=== PATIENT | female | born 1995 | race African-American/Black ===

== ENCOUNTER 2022-02-04 19:59 | Inpatient (IN) | payer OTHER ==
[2022-02-04 20:30] VITALS: BMI 29.2
[2022-02-04] MEDS ORDERED: morphine SULFATE 4 MG/ML VIAL IVPUSH ONE (21:08)
[2022-02-04] MEDS ORDERED: ONDANSETRON 4 MG/2 ML VIAL IVPUSH ONE (21:08)
[2022-02-04] MEDS ORDERED: FAMOTIDINE 20 MG/50 ML IVPB 20 MG/50 ML MG IVPB ONE ×2 (21:08→21:48)
[2022-02-04] MEDS ORDERED: LACTATED RINGERS SOLUTION 1000 ML INFUS.BAG IV ONE (21:08)
[2022-02-04] MEDS ORDERED: ACETAMINOPHEN 1000 MG/100 ML BAG IVPB ONE (21:09)
[2022-02-04] MEDS ORDERED: ONDANSETRON 4 MG/2 ML VIAL ONE (21:20)
[2022-02-04] MEDS ORDERED: morphine SULFATE 4 MG/ML VIAL ONE (21:20)
[2022-02-04 21:33] LABS: BASO % 0.3 % (0-2.0); HEMATOCRIT 30.1 % (32.4-45.2); HEMOGLOBIN 9.8 GM/dL (10.7-15.3); LYMPH % 8.6 % (8-40); MCH 24.8 pg (25.7-33.7); MCHC 32.6 g/dl (32.0-36.0); MEAN CELL VOLUME 76.2 fl (80-96); MONO % 6.5 % (3.8-10.2); NEUT % 84.6 % (42.8-82.8); PLATELET COUNT 261 10^3/uL (134-434); RBC 3.95 M/mm3 (3.60-5.2); RDW 14.7 % (11.6-15.6); WHITE BLOOD COUNT 11.2 K/mm3 (4.0-10.0)
[2022-02-04 21:41] LABS: INR 1.31 (0.83-1.09); PROTHROMBIN TIME (PATIENT) 15.1 SEC (9.7-13.0)
[2022-02-04 21:43] LABS: ACTIVATED PTT 32.4 SECONDS (25.2-36.5)
[2022-02-04 21:47] LABS: ALBUMIN 3.4 g/dl (3.4-5.0); CALCIUM 8.9 mg/dL (8.5-10.1)
[2022-02-04 21:48] LABS: BLOOD UREA NITROGEN 7.6 mg/dL (7-18)
[2022-02-04] MEDS ORDERED: ACETAMINOPHEN INJECTION 100 ML IVPB ONE (21:48)
[2022-02-04 21:50] LABS: CREATININE 0.8 mg/dL (0.55-1.3)
[2022-02-04 21:51] LABS: PHOSPHOROUS 1.5 mg/dL (2.5-4.9)
[2022-02-04 21:52] LABS: BILIRUBIN,TOTAL 1.4 mg/dL (0.2-1); TOT PROT 7.2 g/dl (6.4-8.2)
[2022-02-04] MEDS ORDERED: SODIUM CHLORIDE IVPB ONE (22:14)
[2022-02-04] MEDS ORDERED: POTASSIUM PHOSPHATE IVPB ONE (22:14)
[2022-02-04] MEDS ORDERED: AZITHROMYCIN IVPB 500 MG in DEXTROSE 5%-WATER - 250 ML IVPB ONE (23:00)
[2022-02-04] MEDS ORDERED: CEFTRIAXONE 1 GM in DEXTROSE 5%-WATER - 100 ML IVPB ONE (23:00)
[2022-02-04] MEDS ORDERED: CEFTRIAXONE 1 GM/50 ML BAG ONE (23:29)
[2022-02-04] MEDS ORDERED: AZITHROMYCIN IVPB 500 MG/250 ML BAG IVPB ONE (23:52)
[2022-02-05] MEDS ORDERED: HYDROmorphone HCL CARPU-JECT 2 MG/1 ML DISP.SYRIN IVPUSH ONE (00:02)
[2022-02-05] MEDS ORDERED: HYDROmorphone HCl 2 MG/ML VIAL ONE ×2 (00:06→09:02)
[2022-02-05] MEDS ORDERED: IBUPROFEN 600 MG TABLET (FP) PO ONE ×2 (01:39→01:56)
[2022-02-05 03:45] LABS: EPI CELLS 31 /uL (0-25.1); HYALINE CASTS 12 /uL (0-3.1); URINE APPEARANCE CLEAR; URINE BACTERIA 82 /uL (0-1359); URINE BILIRUBIN NEGATIVE (NEGATIVE); URINE COLOR YELLOW; URINE GLUCOSE (UA) NEGATIVE (NEGATIVE); URINE KETONE NEGATIVE (NEGATIVE); URINE LEUK ESTERASE NEGATIVE (NEGATIVE); URINE NITRITE NEGATIVE (NEGATIVE); URINE PROTEIN 1+ (NEGATIVE); URINE RBC 67 /uL (0-23.9); URINE UROBILINOGEN 0.2 mg/dL (0.2-1.0); URINE WBC 26 /uL (0-25.8)
[2022-02-05] MEDS ORDERED: SUCRALFATE 1 GM TABLET (FP) PO ONE (05:57)
[2022-02-05] MEDS ORDERED: SUCRALFATE 1 GM TABLET (FP) ONE (05:59)
[2022-02-05] MEDS ORDERED: LIDOCAINE 5% TOPICAL PATCH TP ONE (06:45)
[2022-02-05] MEDS ORDERED: LIDOCAINE 5% TOPICAL PATCH ONE (06:45)
[2022-02-05] MEDS ORDERED: HYDROmorphone HCL CARPU-JECT 2 MG/1 ML DISP.SYRIN IVPB ONE (08:59)
[2022-02-05] MEDS ORDERED: ACETAMINOPHEN 325 MG TABLET (FP) PO PRN (09:50)
[2022-02-05] MEDS ORDERED: ACETAMINOPHEN 325 MG TABLET (FP) ONE (09:58)
[2022-02-05] MEDS ORDERED: PANTOPRAZOLE SODIUM 40 MG VIAL ONE (09:58)
[2022-02-05] MEDS ORDERED: PANTOPRAZOLE SODIUM 40 MG VIAL IVPUSH SCH (10:00)
[2022-02-05 11:21] VITALS: TEMP 99.1
[2022-02-05 12:04] VITALS: BP 108/70; PULSE 98; RESP 17
[2022-02-05] MEDS ORDERED: LIDOCAINE PATCH REMOVAL MC ONE (22:00)
== END 2022-02-05 12:17 | disposition home or self-care (01) | DRG 195 ==
LOC: JER 19:59 → JERBED 02-05 03:03
PROVIDERS: ADMIT Family Medicine; ATTEND Family Medicine
DX: J18.9 Pneumonia, unspecified organism (principal); R07.89 Other chest pain; R50.9 Fever, unspecified; E83.39 Other disorders of phosphorus metabolism; R10.11 Right upper quadrant pain
CPT/HCPCS: 0241U-QW; 36415; 71046-TC-FY; 71275-TC; 74176-TC; 76705-TC; 80053; 81003; 83605; 83690; 83735; 84100; 84484; 84703; 85025; 85610; 85730; 87040; 87086; 93005; 93010; 99285-25

== ENCOUNTER 2022-02-25 12:00 | Inpatient (IN) | payer OTHER ==
[2022-02-23 14:28] VITALS: BMI 30.5
[2022-03-11] MEDS ORDERED: BUPIVACAINE HCL/PF 0.25% (2.5MG/ML) 10 ML VIAL ONE (11:08)
[2022-03-11] MEDS ORDERED: HEPARIN NA (PORCINE) 5,000 UNITS/ML 1ML VIAL ONE (11:08)
[2022-03-11] MEDS ORDERED: DEXMEDETOMIDINE HCL 200 MCG/2 ML IVPB ONE (11:17)
[2022-03-11] MEDS ORDERED: ROCURONIUM BROMIDE 50 MG/5 ML SYRINGE ONE ×2 (11:18→11:20)
[2022-03-11] MEDS ORDERED: PROPOFOL 20 ML ONE ×2 (11:19→11:31)
[2022-03-11] MEDS ORDERED: FENTANYL CITRATE/PF 50 MCG/ML VIAL ONE ×3 (11:19→15:43)
[2022-03-11] MEDS ORDERED: MIDAZOLAM HCL 2 MG/2 ML SINGLE DOSE VIAL ONE (11:19)
[2022-03-11] MEDS ORDERED: KETAMINE HCL 500 MG/10 ML VIAL ONE (11:24)
[2022-03-11] MEDS ORDERED: HEPARIN NA (PORCINE) 5,000 UNITS/ML 1ML VIAL SQ ONE (12:20)
[2022-03-11] MEDS ORDERED: ceFAZolin SODIUM 1 GM VIAL IVPB ONE (12:35)
[2022-03-11] MEDS ORDERED: ceFAZolin SODIUM 1 GM VIAL ONE (12:39)
[2022-03-11] MEDS ORDERED: ONDANSETRON 4 MG/2 ML VIAL ONE (12:44)
[2022-03-11] MEDS ORDERED: DEXAMETHASONE SOD PHOSPHATE 4 MG/1 ML VIAL ONE (12:44)
[2022-03-11] MEDS ORDERED: KETOROLAC TROMETHAMINE 30 MG/1 ML VIAL ONE (12:44)
[2022-03-11] MEDS ORDERED: BUPIVACAINE HCL/PF 0.25% (2.5MG/ML) 10 ML VIAL IJ ONE (13:03)
[2022-03-11] MEDS ORDERED: SEVOFLURANE 250 ML BTL ONE (14:44)
[2022-03-11] MEDS ORDERED: GLYCOPYRROLATE 0.2 MG/1 ML VIAL ONE ×2 (15:01)
[2022-03-11] MEDS ORDERED: NEOSTIGMINE METHYLSULFATE 0.5 MG/ML - 10 ML MDV ONE (15:01)
[2022-03-11] MEDS ORDERED: oxyCODONE HCL 5 MG TABLET PO PRN (16:18)
[2022-03-11] MEDS ORDERED: ONDANSETRON 4 MG/2 ML VIAL IVPUSH PRN (16:19)
[2022-03-11] MEDS ORDERED: LACTATED RINGERS SOLUTION 1,000 ML IV SCH (16:30)
[2022-03-11] MEDS ORDERED: HYDROmorphone *PCA* 10MG/50ML DISP.SYRIN PCA SCH ×3 (16:30→18:03)
[2022-03-11] MEDS ORDERED: HYDROmorphone *PCA* 10MG/50ML DISP.SYRIN ONE (16:57)
[2022-03-11] MEDS ORDERED: ACETAMINOPHEN 1000 MG/100 ML BAG IVPB PRN (18:00)
[2022-03-11] MEDS ORDERED: ACETAMINOPHEN INJECTION 100 ML IVPB ONE (19:40)
[2022-03-11] MEDS ORDERED: KETOROLAC TROMETHAMINE 15 MG/ML VIAL IM PRN (20:00)
[2022-03-12] MEDS: DOCUSATE SODIUM 100 MG CAPSULE (FP) PO SCH ×2 (00:01→05:50)
[2022-03-12 07:48] VITALS: BP 108/65; PULSE 76; RESP 28; TEMP 98.5
[2022-03-12] MEDS ORDERED: traMADol HCL 50 MG TABLET PO PRN (08:23)
[2022-03-12] MEDS ORDERED: SENNOSIDES 8.6MG TABLET (FP) PO PRN (08:27)
[2022-03-12] MEDS ORDERED: oxyCODONE HCL 5 MG TABLET PO PRN (08:27)
[2022-03-12] MEDS ORDERED: IBUPROFEN 800 MG/8 ML IJ IVPB SCH (08:30)
[2022-03-12] MEDS ORDERED: ACETAMINOPHEN 1000 MG/100 ML BAG IVPB SCH (08:30)
[2022-03-12] MEDS ORDERED: PANTOPRAZOLE SODIUM 40 MG VIAL IVPUSH SCH (10:00)
[2022-03-12] MEDS ORDERED: HEPARIN NA (PORCINE) 5,000 UNITS/ML 1ML VIAL SQ SCH (10:00)
[2022-03-12 11:19] LABS: BASO % 0.2 % (0-2.0); EOS % 0.3 % (0-4.5); HEMATOCRIT 29.2 % (32.4-45.2); HEMOGLOBIN 9.3 GM/dL (10.7-15.3); LYMPH % 31.1 % (8-40); MCH 24.9 pg (25.7-33.7); MCHC 31.9 g/dl (32.0-36.0); MONO % 6.1 % (3.8-10.2); NEUT % 62.3 % (42.8-82.8); PLATELET COUNT 246 10^3/uL (134-434); RBC 3.74 M/mm3 (3.60-5.2); RDW 15.9 % (11.6-15.6); WHITE BLOOD COUNT 6.7 K/mm3 (4.0-10.0)
[2022-03-12 11:35] LABS: ALBUMIN 2.8 g/dl (3.4-5.0); BLOOD UREA NITROGEN 7.6 mg/dL (7-18); CALCIUM 7.9 mg/dL (8.5-10.1)
[2022-03-12 11:39] LABS: CREATININE 0.6 mg/dL (0.55-1.3); TOT PROT 5.6 g/dl (6.4-8.2)
[2022-03-12 11:46] LABS: BILIRUBIN,TOTAL 1.5 mg/dL (0.2-1)
[2022-03-12] MEDS ORDERED: DOCUSATE SODIUM 100 MG CAPSULE (FP) PO SCH (14:00)
== END 2022-03-12 17:15 | disposition home or self-care (01) | DRG 168 ==
LOC: J2C 03-11 04:12 → JICU 03-11 22:50
PROVIDERS: ADMIT Student in an Organized Health Care Education/Training Program; ATTEND Internal Medicine Pulmonary Disease
PROC: 0DJ08ZZ Inspection of Upper Intestinal Tract, Via Natural or Artificial Opening Endoscopic (ICD-10-PCS; 2022-03-11)
PROC: 8E0W4CZ Robotic Assisted Procedure of Trunk Region, Percutaneous Endoscopic Approach (ICD-10-PCS; 2022-03-11)
PROC: 07B74ZX Excision of Thorax Lymphatic, Percutaneous Endoscopic Approach, Diagnostic (ICD-10-PCS; principal; 2022-03-11 10:30)
DX: J98.59 Other diseases of mediastinum, not elsewhere classified (principal); K22.5 Diverticulum of esophagus, acquired
CPT/HCPCS: 36415; 71045-TC-FY; 74220-TC-FY; 80053; 81025; 85025; 86850; 86900; 86901; 86922; 88305-TC; 94760; C9803-CS; J1644; U0003; U0005

== ENCOUNTER 2024-03-20 04:34 | Day surgery (SDC) | payer OTHER ==
[2024-03-19 12:15] VITALS: BMI 33.0
[2024-03-20 11:25] VITALS: TEMP 98.2
[2024-03-20 11:49] VITALS: BP 109/67; PULSE 64; RESP 18
== END 2024-03-20 12:30 | disposition home or self-care (01) ==
LOC: JASU-ENDO 04:34
PROVIDERS: ATTEND Internal Medicine Gastroenterology
PROC: 0DB78ZX Excision of Stomach, Pylorus, Via Natural or Artificial Opening Endoscopic, Diagnostic (ICD-10-PCS; 2024-03-20)
PROC: 0DB68ZX Excision of Stomach, Via Natural or Artificial Opening Endoscopic, Diagnostic (ICD-10-PCS; principal; 2024-03-20 10:15)
DX: K29.50 Unspecified chronic gastritis without bleeding (principal); K31.7 Polyp of stomach and duodenum
CPT/HCPCS: 81025; 88305-TC; 88342-TC